=== PATIENT | female | born 1970 | race African-American/Black ===

== ENCOUNTER 2021-02-06 12:23 | Emergency (ER) | payer BC ==
[~2021-02-06] VITALS: Ht 170.2 cm; Wt 111.0 kg
[2021-02-06] MEDS ORDERED: KETOROLAC 30MG/ML VIAL IV STA (12:46)
[2021-02-06] MEDS ORDERED: SODIUM CHLORIDE 0.9% 1,000 ML IV ONE (13:00)
[2021-02-06 14:21] LABS: BASOPHILS % 0.6 % (0.0-2.0); EOSINOPHILS % 0.2 % (0.0-5.0); HEMATOCRIT. 39.8 % (36.0-48.0); LYMPHOCYTES % 20.4 % (20.0-50.0); MEAN CORPUSCULAR HEMOGLOBIN 29.1 pg (28.0-32.0); MEAN CORPUSCULAR VOLUME 89.1 fL (81.0-99.0); MONOCYTES % 7.2 % (2.0-8.0); NEUTROPHILS % 71.6 % (40.0-76.0); PLATELET 213 x1000/uL (130-400); RED BLOOD CELL COUNT 4.46 mill/uL (4.2-5.4); RED CELL DISTRIBUTION WIDTH 14.6 % (11.6-14.6)
[2021-02-06 14:27] LABS: CHLORIDE 111 mEq/L (98-107)
[2021-02-06 14:36] LABS: CREATINE KINASE 149 IU/L (26-192)
[2021-02-06 14:38] LABS: CREATINE KINASE MB FRACTION 1.8 ng/mL (0.5-3.6)
[2021-02-06 14:53] VITALS: BP 128/86
[2021-02-06] MEDS ORDERED: METH500T6 MT (15:14)
[2021-02-06] MEDS ORDERED: IBUP-2030 MT (15:14)
[2021-02-06] MEDS ORDERED: TRAM50TA3 MT (15:14)
== END 2021-02-06 15:23 | disposition home or self-care (01) ==
LOC: ER 12:42
DX: S09.8XXA Other specified injuries of head, initial encounter (principal); S50.12XA Contusion of left forearm, initial encounter; M54.2 Cervicalgia; V43.52XA Car driver injured in collision with other type car in traffic accident, initial encounter; Y93.89 Activity, other specified; Y92.410 Unspecified street and highway as the place of occurrence of the external cause; Z90.710 Acquired absence of both cervix and uterus
CPT/HCPCS: 36415; 71045; 71250; 72125; 73090; 80053; 82550; 82553; 84484; 85025; 93005; 96374; 99285; J1885; J7030; Z7610